=== PATIENT | male | born 2000 | race African-American/Black ===

== ENCOUNTER 2023-06-19 21:28 | Emergency (ER) | payer MEDICAID ==
[~2023-06-19] VITALS: Ht 172.7 cm; Wt 85.6 kg
[2023-06-19 21:46] VITALS: BP 155/94; PULSE 75; RESP 18; TEMP 98.7; O2SAT 99
[2023-06-20] MEDS ORDERED: IBUP-2766 PO (00:18)
[2023-06-20] MEDS ORDERED: ibuprofen 100 MG/5 ML oral susp PO ONE (00:20)
== END 2023-06-20 00:35 | disposition home or self-care (01) ==
LOC: ER 21:30
DX: S42.002A Fracture of unspecified part of left clavicle, initial encounter for closed fracture (principal); Z79.1 Long term (current) use of non-steroidal anti-inflammatories (NSAID); X58.XXXA Exposure to other specified factors, initial encounter; Y93.89 Activity, other specified; Y92.89 Other specified places as the place of occurrence of the external cause; Y99.8 Other external cause status
CPT/HCPCS: 73030; 99283; A4565